=== PATIENT | female | born 1995 | race American Indian/Alaskan Native ===

== ENCOUNTER 2023-03-02 01:52 | Emergency (ER) | payer MEDICAID ==
[~2023-03-02] VITALS: Ht 149.9 cm; Wt 68.2 kg
[2023-03-02] MEDS ORDERED: ondansetron/PF 4mg/2ml inj IV ONE (02:40)
[2023-03-02] MEDS ORDERED: normal saline 1000ML IV soln IVB ONE (02:40)
[2023-03-02 03:18] VITALS: BP 100/54; PULSE 80; RESP 16; TEMP 97.8; O2SAT 99
== END 2023-03-02 03:20 | disposition home or self-care (01) ==
LOC: ER 01:53
DX: F10.129 Alcohol abuse with intoxication, unspecified (principal); R11.10 Vomiting, unspecified; Z79.899 Other long term (current) drug therapy; Y90.0 Blood alcohol level of less than 20 mg/100 ml
CPT/HCPCS: 96361; 96374; 99284; J2405; J7030; 99283